=== PATIENT | male | born 1950 | race Caucasian/White ===

== ENCOUNTER 2020-09-15 18:22 | Inpatient (IN) | payer MEDICARE ==
[2020-09-15 19:06] LABS: #Eosinphils 0.1 thou/uL (0.0-0.7); #Lymphocytes 0.9 thou/uL (1.20-3.40); #Monocytes 0.5 thou/uL (0.11-0.59); #Neutrophils 3.2 thou/uL (1.40-6.50); %Basophils 0.1 % (0.0-1.0); %Eosinophils 2.6 % (0.0-10.0); %Lymphocytes 19.3 % (21.0-51.0); %Monocytes 9.9 % (0.0-10.0); Mean Corpuscular HGB CONC 35.4 g/dL (32.0-36.0); Mean Corpuscular Hemoglobin 33.2 pg (27.0-31.0); Mean Corpuscular Volume 93.8 fL (78.0-98.0); Mean Platelet Volume 7.5 fL (7.4-10.4); Platelet Count 220 thou/uL (130-400); Red Blood Cell (RBC) Count 4.21 mill/uL (4.70-6.10); White Blood Cell (WBC) Count 4.8 thou/uL (4.8-10.8)
[2020-09-15 19:25] LABS: ALT (SGPT) 35 U/L (8-55); AST (SGOT) 24 U/L (5-34); Albumin 4.2 g/dL (3.4-4.8); Alkaline Phosphatase 79 U/L (40-110); Anion Gap 12 mmol/L (10-20); BUN (Urea Nitrogen) 15 mg/dL (8.4-25.7); Bilirubin, Total 0.8 mg/dL (0.2-1.2); Calc. Creatinine Clearance 0 mL/min (70-130); Calcium 9.1 mg/dL (7.8-10.44); Carbon Dioxide 25 mmol/L (23-31); Chloride 107 mmol/L (98-107); Globulin 2.9 g/dL (2.4-3.5); Glucose 111 mg/dL (83-110); Protein, Total 7.1 g/dL (5.8-8.1); Sodium 140 mmol/L (136-145)
[2020-09-15] MEDS ORDERED: Ketorolac Tromethamine 30 MG/ML VIAL ONE (19:38)
[2020-09-15] MEDS ORDERED: Promethazine HCl 25 MG/ML VIAL IM PRN (20:14)
[2020-09-15] MEDS ORDERED: Ondansetron PF 4 MG/2 ML Vial IVP PRN (20:14)
[2020-09-15] MEDS ORDERED: Dextrose 50% Abboject 50 ML SYRINGE SLOW IVP PRN (20:14)
[2020-09-15] MEDS ORDERED: Dextrose 5% in Water 1,000 ML IV PRN (20:14)
[2020-09-15] MEDS ORDERED: Morphine 2 MG/ML VIAL SLOW IVP PRN (20:19)
[2020-09-15 22:54] VITALS: BMI 29.7
[2020-09-15] MEDS ORDERED: Lisinopril 20 MG TAB PO SCH (23:00)
[2020-09-15] MEDS: Acetaminophen 325 MG TAB PO SCH (23:10)
[2020-09-15] MEDS: traMADol HCl 50 MG TAB PO SCH (23:11)
[2020-09-15] MEDS: Famotidine/PF 20 mg/2ml Vial SLOW IVP SCH (23:15)
[2020-09-15] MEDS ORDERED: Senokot S 8.6-50 MG TAB PO SCH (23:59)
[2020-09-15] MEDS ORDERED: Gabapentin 100 MG CAP PO SCH (23:59)
[2020-09-16] MEDS: Tamsulosin HCl 0.4 MG CAP PO SCH (04:16)
[2020-09-16] MEDS: traMADol HCl 50 MG TAB PO SCH ×3 (05:40→17:28)
[2020-09-16] MEDS: Acetaminophen 325 MG TAB PO SCH ×3 (05:40→17:27)
[2020-09-16] MEDS: Ibuprofen 200 MG TAB PO SCH ×3 (05:41→21:11)
[2020-09-16 06:01] LABS: #Eosinphils 0.2 thou/uL (0.0-0.7); #Monocytes 0.6 thou/uL (0.11-0.59); #Neutrophils 2.7 thou/uL (1.40-6.50); %Eosinophils 4.7 % (0.0-10.0); %Lymphocytes 21.5 % (21.0-51.0); %Monocytes 13.5 % (0.0-10.0); %Neutrophils 60.3 % (42.0-75.0); Hemoglobin 13.2 g/dL (14.0-18.0); Mean Corpuscular HGB CONC 34.5 g/dL (32.0-36.0); Mean Corpuscular Hemoglobin 32.6 pg (27.0-31.0); Mean Corpuscular Volume 94.7 fL (78.0-98.0); Mean Platelet Volume 7.7 fL (7.4-10.4); Platelet Count 196 thou/uL (130-400); RBC Distribution Width 13.3 % (11.5-14.5); Red Blood Cell (RBC) Count 4.04 mill/uL (4.70-6.10); White Blood Cell (WBC) Count 4.5 thou/uL (4.8-10.8)
[2020-09-16 06:18] LABS: Anion Gap 10 mmol/L (10-20); BUN (Urea Nitrogen) 17 mg/dL (8.4-25.7); Calc. Creatinine Clearance 126 mL/min (70-130); Calcium 8.8 mg/dL (7.8-10.44); Carbon Dioxide 27 mmol/L (23-31); Chloride 108 mmol/L (98-107); Glucose 109 mg/dL (83-110); INR-International Normal Ratio 1.1; Potassium 3.9 mmol/L (3.5-5.1); Prothrombin Time 14.1 sec (12.0-14.7); Sodium 141 mmol/L (136-145)
[2020-09-16 06:19] LABS: PTT 32.5 sec (22.9-36.1)
[2020-09-16] MEDS: Hydrochlorothiazide 25 MG TAB PO SCH (09:08)
[2020-09-16] MEDS: Polyethylene Glycol 3350 17 GM Packet PO SCH (09:09)
[2020-09-16] MEDS: Senokot S 8.6-50 MG TAB PO SCH ×2 (09:09→21:12)
[2020-09-16] MEDS: Famotidine/PF 20 mg/2ml Vial SLOW IVP SCH ×2 (09:09→21:12)
[2020-09-16] MEDS: Gabapentin 100 MG CAP PO SCH ×3 (09:09→21:12)
[2020-09-16] MEDS: Lisinopril 20 MG TAB PO SCH (09:09)
[2020-09-16] MEDS ORDERED: Diazepam 5 MG TAB PO SCH (11:00)
[2020-09-16 15:58] LABS: SARS-CoV-2 PCR by NAA Not Detected (NotDetected)
[2020-09-17] MEDS: Acetaminophen 325 MG TAB PO SCH ×4 (00:55→17:24)
[2020-09-17] MEDS: traMADol HCl 50 MG TAB PO SCH ×4 (00:56→17:25)
[2020-09-17] MEDS: Ibuprofen 200 MG TAB PO SCH ×3 (06:32→20:31)
[2020-09-17] MEDS: Lisinopril 20 MG TAB PO SCH (08:19)
[2020-09-17] MEDS: Famotidine/PF 20 mg/2ml Vial SLOW IVP SCH ×2 (08:19→20:31)
[2020-09-17] MEDS: Gabapentin 100 MG CAP PO SCH ×3 (08:19→20:32)
[2020-09-17] MEDS: Polyethylene Glycol 3350 17 GM Packet PO SCH (08:19)
[2020-09-17] MEDS: Senokot S 8.6-50 MG TAB PO SCH ×2 (08:19→20:33)
[2020-09-17] MEDS: Hydrochlorothiazide 25 MG TAB PO SCH (08:19)
[2020-09-17] MEDS: Tamsulosin HCl 0.4 MG CAP PO SCH (08:20)
[2020-09-17] MEDS: Cyclobenzaprine 10 MG TAB PO PRN (13:49)
[2020-09-17] MEDS: Enoxaparin Sodium 40 MG/0.4 ML SYRINGE SC SCH (20:31)
[2020-09-18] MEDS: Acetaminophen 325 MG TAB PO SCH ×4 (01:13→18:03)
[2020-09-18] MEDS: traMADol HCl 50 MG TAB PO SCH ×4 (01:14→18:04)
[2020-09-18] MEDS: Tamsulosin HCl 0.4 MG CAP PO SCH (08:09)
[2020-09-18] MEDS: Ibuprofen 200 MG TAB PO SCH ×5 (08:10→21:26)
[2020-09-18] MEDS: Gabapentin 100 MG CAP PO SCH ×3 (08:34→21:27)
[2020-09-18] MEDS: traMADol HCl 50 MG TAB PO PRN (08:35)
[2020-09-18] MEDS: Lisinopril 20 MG TAB PO SCH (09:27)
[2020-09-18] MEDS: Senokot S 8.6-50 MG TAB PO SCH ×2 (09:28→21:26)
[2020-09-18] MEDS: Polyethylene Glycol 3350 17 GM Packet PO SCH (09:28)
[2020-09-18] MEDS: Famotidine 20 MG TAB PO SCH ×2 (09:28→21:27)
[2020-09-18] MEDS: Hydrochlorothiazide 25 MG TAB PO SCH (09:28)
[2020-09-18] MEDS: Enoxaparin Sodium 40 MG/0.4 ML SYRINGE SC SCH (21:25)
[2020-09-19] MEDS: traMADol HCl 50 MG TAB PO SCH ×4 (02:54→18:34)
[2020-09-19] MEDS: Acetaminophen 325 MG TAB PO SCH ×4 (02:54→18:33)
[2020-09-19] MEDS: Ibuprofen 200 MG TAB PO SCH ×2 (05:59→14:23)
[2020-09-19] MEDS: Lisinopril 20 MG TAB PO SCH (09:35)
[2020-09-19] MEDS: Senokot S 8.6-50 MG TAB PO SCH (09:35)
[2020-09-19] MEDS: Hydrochlorothiazide 25 MG TAB PO SCH (09:35)
[2020-09-19] MEDS: Gabapentin 100 MG CAP PO SCH ×2 (09:36→14:22)
[2020-09-19] MEDS: Famotidine 20 MG TAB PO SCH (09:36)
[2020-09-19] MEDS: Polyethylene Glycol 3350 17 GM Packet PO SCH (09:38)
[2020-09-19] MEDS: Tamsulosin HCl 0.4 MG CAP PO SCH (09:38)
[2020-09-19] MEDS ORDERED: Famotidine/PF 20 mg/2ml Vial ONE (14:51)
[2020-09-19] MEDS ORDERED: SUGAMMADEX SODIUM 200 MG/2 ML VIAL ONE (15:23)
[2020-09-20] MEDS: Senokot S 8.6-50 MG TAB PO SCH ×3 (00:18→21:43)
[2020-09-20] MEDS: Famotidine 20 MG TAB PO SCH ×3 (00:18→21:44)
[2020-09-20] MEDS: Acetaminophen 325 MG TAB PO SCH ×5 (00:19→23:53)
[2020-09-20] MEDS: traMADol HCl 50 MG TAB PO SCH ×5 (00:19→23:53)
[2020-09-20] MEDS: Ibuprofen 200 MG TAB PO SCH ×4 (00:20→21:44)
[2020-09-20] MEDS: Gabapentin 100 MG CAP PO SCH ×4 (00:20→21:44)
[2020-09-20] MEDS: Aspirin 81 mg Enteric Coated Tablet PO SCH ×3 (00:20→21:44)
[2020-09-20] MEDS: Cyclobenzaprine 10 MG TAB PO PRN (01:04)
[2020-09-20] MEDS: traMADol HCl 50 MG TAB PO PRN (01:05)
[2020-09-20] MEDS: Lisinopril 20 MG TAB PO SCH (10:52)
[2020-09-20] MEDS: Tamsulosin HCl 0.4 MG CAP PO SCH (10:52)
[2020-09-20] MEDS: Hydrochlorothiazide 25 MG TAB PO SCH (10:52)
[2020-09-20] MEDS: Polyethylene Glycol 3350 17 GM Packet PO SCH (10:53)
[2020-09-21] MEDS: traMADol HCl 50 MG TAB PO SCH ×3 (06:12→17:04)
[2020-09-21] MEDS: Ibuprofen 200 MG TAB PO SCH ×2 (06:12→16:57)
[2020-09-21] MEDS: Acetaminophen 325 MG TAB PO SCH ×2 (06:13→11:49)
[2020-09-21] MEDS: Aspirin 81 mg Enteric Coated Tablet PO SCH (08:37)
[2020-09-21] MEDS: Senokot S 8.6-50 MG TAB PO SCH (08:37)
[2020-09-21] MEDS: Famotidine 20 MG TAB PO SCH (08:37)
[2020-09-21] MEDS: Lisinopril 20 MG TAB PO SCH (08:38)
[2020-09-21] MEDS: Gabapentin 100 MG CAP PO SCH ×2 (08:38→16:57)
[2020-09-21] MEDS: Hydrochlorothiazide 25 MG TAB PO SCH (08:38)
[2020-09-21] MEDS: Tamsulosin HCl 0.4 MG CAP PO SCH (08:42)
[2020-09-21] MEDS: Polyethylene Glycol 3350 17 GM Packet PO SCH (08:42)
[2020-09-21 11:56] VITALS: BP 173/79; TEMP 98.2
== END 2020-09-21 17:12 | disposition home or self-care (01) | DRG 536 ==
LOC: ERS 18:22 → SURG B 20:14
PROVIDERS: ADMIT Surgery; ATTEND Surgery
DX: S72.114A Nondisplaced fracture of greater trochanter of right femur, initial encounter for closed fracture (principal); I10 Essential (primary) hypertension; N40.0 Benign prostatic hyperplasia without lower urinary tract symptoms; M17.0 Bilateral primary osteoarthritis of knee; R00.1 Bradycardia, unspecified; W18.09XA Striking against other object with subsequent fall, initial encounter; Z20.822 Contact with and (suspected) exposure to COVID-19; Z98.890 Other specified postprocedural states; Y92.009 Unspecified place in unspecified non-institutional (private) residence as the place of occurrence of the external cause
CPT/HCPCS: 36415; 71045; 80048; 80053; 85025; 85610; 85730; 93005; 96374; G0390; J1650; J1885; S0028; U0003; U0005

== ENCOUNTER 2021-03-21 13:15 | Outpatient (CLI) | payer MEDICARE ==
[2021-03-21 14:45] LABS: #Eosinphils 0.1 10x3/uL (0.0-0.5); #Monocytes 0.6 10x3/uL (0.0-1.1); #Neutrophils 3.1 10x3/uL (1.5-8.4); %Basophils 0.2 % (0.0-2.0); %Eosinophils 2.4 % (0.0-6.0); %Monocytes 11.6 % (0.0-10.0); %Neutrophils 56.4 % (40.0-75.0); Mean Corpuscular HGB CONC 34.6 g/dL (32.0-36.0); Mean Corpuscular Hemoglobin 31.2 pg (27.0-33.0); Mean Corpuscular Volume 90.2 fl (81.2-95.1); Mean Platelet Volume 10.1 fl (7.4-10.4); Platelet Count 228 10x3/uL (150-450); RBC Distribution Width 13.8 % (11.5-14.5); Red Blood Cell (RBC) Count 4.81 10x6/uL (4.32-5.72); White Blood Cell (WBC) Count 5.5 10x3/uL (3.5-10.5)
[2021-03-21 14:51] LABS: Prothrombin Time 10.7 sec (9.5-12.1)
[2021-03-21 14:55] LABS: Anion Gap 13 mmol/L (10-20); BUN (Urea Nitrogen) 15 mg/dL (8.4-25.7); Calc. Creatinine Clearance 0 mL/min (70-130); Calcium 9.4 mg/dL (7.8-10.44); Carbon Dioxide 27 mmol/L (23-31); Chloride 103 mmol/L (98-107); Glucose 92 mg/dL (83-110); Potassium 4.3 mmol/L (3.5-5.1); Sodium 139 mmol/L (136-145)
[2021-03-22 11:19] LABS: SARS-CoV-2 PCR by NAA Not Detected (NotDetected)
== END 2021-03-21 13:16 | disposition home or self-care (01) ==
LOC: LABBT 13:15
PROVIDERS: ATTEND Orthopaedic Surgery
DX: Z01.818 Encounter for other preprocedural examination (principal); Z20.822 Contact with and (suspected) exposure to COVID-19
CPT/HCPCS: 80048; 85025; 85610; 87081; 93005; U0003; U0005; 93010

== ENCOUNTER 2021-03-26 06:05 | Observation (INO) | payer MEDICARE ==
[2021-03-21 09:24] VITALS: BMI 30.8
[2021-03-26] MEDS ORDERED: Sodium Chloride 0.9% 100 ML ONE (07:42)
[2021-03-26] MEDS ORDERED: ceFAZolin 2 GM/DEX 5% 100 ML BAG ONE (07:42)
[2021-03-26] MEDS ORDERED: Tranexamic Acid 1,000 MG/10 ML VIAL ONE (07:42)
[2021-03-26] MEDS ORDERED: Vancomycin 1.5 GRAM/300 ML BAG 1.5 GM in Premix Bag 1 BAG IVPB SCH (07:45)
[2021-03-26] MEDS ORDERED: Fentanyl 100 MCG/2 ML VIAL ONE ×5 (08:42→12:27)
[2021-03-26] MEDS ORDERED: Midazolam HCl 2 mg/2 ml Vial ONE (08:42)
[2021-03-26] MEDS ORDERED: EPINEPHrine 1 MG/ML AMP ONE (08:53)
[2021-03-26] MEDS ORDERED: Bupivacaine PF 0.5% 30 ML VIAL ONE (08:53)
[2021-03-26] MEDS ORDERED: Promethazine HCl 25 MG/ML VIAL IM PRN ×2 (09:30→10:15)
[2021-03-26] MEDS ORDERED: Acetaminophen 325 MG TAB PO PRN (09:30)
[2021-03-26] MEDS ORDERED: Ondansetron PF 4 MG/2 ML Vial IVP PRN ×2 (09:30→10:15)
[2021-03-26] MEDS ORDERED: HYDROcodone/Acetaminophen 10/325 mg Tablet PO PRN ×2 (09:30)
[2021-03-26] MEDS ORDERED: diphenhydrAMINE 25 MG CAP PO PRN (09:30)
[2021-03-26] MEDS ORDERED: Fentanyl 100 MCG/2 ML VIAL SLOW IVP PRN (09:30)
[2021-03-26] MEDS ORDERED: Zolpidem Tartrate 5 MG TAB PO PRN ×2 (09:30→10:15)
[2021-03-26] MEDS ORDERED: PROPOFOL 200 MG/20 ML VIAL ONE (09:47)
[2021-03-26] MEDS ORDERED: Bupivacaine HCl 0.5%/Epinephrine 1:200,000/PF 30 ml Vial ONE (09:47)
[2021-03-26] MEDS ORDERED: Ondansetron PF 4 MG/2 ML Vial ONE (09:47)
[2021-03-26] MEDS ORDERED: Dexamethasone 20 MG/5 ML VIAL ONE (09:47)
[2021-03-26] MEDS ORDERED: Lidocaine 1% PF 5 ML VIAL ONE (09:47)
[2021-03-26] MEDS ORDERED: Fentanyl 100 MCG/2 ML VIAL IV PRN (10:08)
[2021-03-26] MEDS ORDERED: Ropivacaine 0.2% 550 ML 550 ML NERVE BLCK SCH (10:15)
[2021-03-26] MEDS ORDERED: traMADol HCl 50 MG TAB PO PRN ×2 (10:15)
[2021-03-26] MEDS ORDERED: HYDROmorphone 2 MG/ML VIAL ONE (10:30)
[2021-03-26] MEDS ORDERED: HYDROmorphone 0.5 MG/0.5 ML SYRINGE ONE ×2 (12:01→12:14)
[2021-03-26] MEDS ORDERED: Ketorolac Tromethamine 30 MG/ML VIAL ONE (12:26)
[2021-03-26] MEDS: Ketorolac Tromethamine 30 MG/ML VIAL IVP SCH ×3 (13:49→23:58)
[2021-03-26] MEDS: Sodium Chloride 0.9% 1,000 ML IV SCH ×2 (13:56→19:50)
[2021-03-26] MEDS: HYDROcodone/Acetaminophen 10/325 mg Tablet PO PRN ×3 (13:57→21:15)
[2021-03-26] MEDS ORDERED: CEFAZOLIN 2 GM in Premix Bag 1 BAG IVPB SCH (14:00)
[2021-03-26] MEDS ORDERED: Ketorolac Tromethamine 30 MG/ML VIAL IM SCH (14:00)
[2021-03-26] MEDS: ceFAZolin Sodium/D5W 2 GM in Premix Bag 1 BAG IVPB SCH (17:21)
[2021-03-26] MEDS: Senokot S 8.6-50 MG TAB PO SCH (21:15)
[2021-03-26] MEDS: Ferrous Gluconate 324 MG TAB PO SCH (21:15)
[2021-03-26] MEDS: Aspirin 81 mg Enteric Coated Tablet PO SCH (21:15)
[2021-03-27] MEDS: tiZANidine HCl 4 MG TAB PO PRN ×2 (00:26→20:59)
[2021-03-27] MEDS: ceFAZolin Sodium/D5W 2 GM in Premix Bag 1 BAG IVPB SCH (02:09)
[2021-03-27] MEDS: HYDROcodone/Acetaminophen 10/325 mg Tablet PO PRN ×6 (02:13→22:07)
[2021-03-27] MEDS: Sodium Chloride 0.9% 1,000 ML IV SCH ×2 (04:49→15:33)
[2021-03-27] MEDS: Ketorolac Tromethamine 30 MG/ML VIAL IVP SCH ×3 (05:37→17:57)
[2021-03-27 06:51] LABS: Mean Corpuscular HGB CONC 33.8 g/dL (32.0-36.0); Mean Corpuscular Hemoglobin 31.8 pg (27.0-31.0); Mean Corpuscular Volume 94.2 fL (78.0-98.0); Mean Platelet Volume 7.3 fL (7.4-10.4); Platelet Count 224 thou/uL (130-400); Red Blood Cell (RBC) Count 3.77 mill/uL (4.70-6.10); White Blood Cell (WBC) Count 10.6 thou/uL (4.8-10.8)
[2021-03-27] MEDS ORDERED: Non-Formulary Item 1 EACH (Hydrochlorothiazide [Hydrochlorothiazide] 12.5 MG Tablet) PO SCH (09:00)
[2021-03-27] MEDS ORDERED: Loratadine 10 MG TAB PO SCH (09:00)
[2021-03-27] MEDS ORDERED: Non-Formulary Item 1 EACH (Omeprazole [Omeprazole] 20 MG Capsule.Dr) PO SCH (09:00)
[2021-03-27] MEDS: Hydrochlorothiazide 25 MG TAB PO SCH (09:18)
[2021-03-27] MEDS: Multivitamin W/ Minerals 1 TAB PO SCH (09:18)
[2021-03-27] MEDS: Loratadine 10 MG TAB PO SCH (09:18)
[2021-03-27] MEDS: Aspirin 81 mg Enteric Coated Tablet PO SCH ×2 (09:18→20:59)
[2021-03-27] MEDS: Ferrous Gluconate 324 MG TAB PO SCH ×2 (09:18→20:59)
[2021-03-27] MEDS: Senokot S 8.6-50 MG TAB PO SCH ×2 (09:18→20:59)
[2021-03-27] MEDS: Lisinopril 20 MG TAB PO SCH (09:19)
[2021-03-27] MEDS: Fluticasone Propionate Nasal Spray 16 gm Bottle NASAL SCH (09:21)
[2021-03-28] MEDS: Ketorolac Tromethamine 30 MG/ML VIAL IVP SCH ×2 (00:57→06:03)
[2021-03-28] MEDS: Sodium Chloride 0.9% 1,000 ML IV SCH ×3 (03:40→23:57)
[2021-03-28] MEDS: HYDROcodone/Acetaminophen 10/325 mg Tablet PO PRN ×3 (06:11→15:21)
[2021-03-28] MEDS: Hydrochlorothiazide 25 MG TAB PO SCH (09:08)
[2021-03-28] MEDS: Multivitamin W/ Minerals 1 TAB PO SCH (09:08)
[2021-03-28] MEDS: Ferrous Gluconate 324 MG TAB PO SCH ×2 (09:08→21:42)
[2021-03-28] MEDS: Lisinopril 20 MG TAB PO SCH (09:08)
[2021-03-28] MEDS: Aspirin 81 mg Enteric Coated Tablet PO SCH ×2 (09:08→21:42)
[2021-03-28] MEDS: Loratadine 10 MG TAB PO SCH (09:08)
[2021-03-28] MEDS: Senokot S 8.6-50 MG TAB PO SCH ×2 (09:08→21:42)
[2021-03-28] MEDS: Fluticasone Propionate Nasal Spray 16 gm Bottle NASAL SCH (09:08)
[2021-03-28] MEDS: tiZANidine HCl 4 MG TAB PO PRN (15:28)
[2021-03-29] MEDS: HYDROcodone/Acetaminophen 10/325 mg Tablet PO PRN ×3 (06:16→10:29)
[2021-03-29] MEDS: Sodium Chloride 0.9% 1,000 ML IV SCH (08:22)
[2021-03-29] MEDS: Multivitamin W/ Minerals 1 TAB PO SCH (08:30)
[2021-03-29] MEDS: Senokot S 8.6-50 MG TAB PO SCH (08:30)
[2021-03-29] MEDS: Hydrochlorothiazide 25 MG TAB PO SCH (08:31)
[2021-03-29] MEDS: Loratadine 10 MG TAB PO SCH (08:31)
[2021-03-29] MEDS: Ferrous Gluconate 324 MG TAB PO SCH (08:31)
[2021-03-29] MEDS: Lisinopril 20 MG TAB PO SCH (08:31)
[2021-03-29] MEDS: Aspirin 81 mg Enteric Coated Tablet PO SCH (08:31)
[2021-03-29] MEDS: tiZANidine HCl 4 MG TAB PO PRN ×2 (10:30)
[2021-03-29 12:06] VITALS: BP 135/67; TEMP 98.6
[2021-03-29] MEDS: Fluticasone Propionate Nasal Spray 16 gm Bottle NASAL SCH (15:12)
[2021-03-29] MEDS ORDERED: Silver Sulfadiazine 50 GM TUBE TOP SCH (21:00)
[2021-03-29] MEDS ORDERED: Silver Sulfadiazine 50 GM JAR TP SCH (21:00)
== END 2021-03-29 13:35 | disposition home health service (06) ==
LOC: SDC 06:05 → SJJU 13:28 → SDC 03-27 09:20 → SJJU 03-27 09:20
PROVIDERS: ADMIT Orthopaedic Surgery; ATTEND Orthopaedic Surgery
PROC: 0SRD0J9 Replacement of Left Knee Joint with Synthetic Substitute, Cemented, Open Approach (ICD-10-PCS; principal; 2021-03-26)
PROC: 8E0YXBZ Computer Assisted Procedure of Lower Extremity (ICD-10-PCS; 2021-03-26)
PROC: 3E0T3BZ Introduction of Anesthetic Agent into Peripheral Nerves and Plexi, Percutaneous Approach (ICD-10-PCS; 2021-03-26)
DX: M17.0 Bilateral primary osteoarthritis of knee (principal); I10 Essential (primary) hypertension; Z79.899 Other long term (current) drug therapy
CPT/HCPCS: 20985; 27447; 64448; 73560; 85027; 97110 ×3; 97116 ×4; 97139 ×3; 97530 ×2; A4306; C1713; C1776; 36415; 96374; 96375; 96376; G0378; J0171; J1100; J1170; J1885; J2250; J2405; J2704; J2795; J3010; J3370; J3490; J7050; S0020

== ENCOUNTER 2025-01-18 07:45 | Outpatient (CLI) | payer MEDICARE | END 2025-01-18 07:46 | disposition home or self-care (01) | LOC: ULT 07:45 | PROVIDERS: ATTEND Family Medicine | DX: Z13.6 Encounter for screening for cardiovascular disorders (principal); M81.0 Age-related osteoporosis without current pathological fracture; Z79.818 Long term (current) use of other agents affecting estrogen receptors and estrogen levels | CPT/HCPCS: 76706; 77080 ==